=== PATIENT | female | born 1975 | race Caucasian/White ===

== ENCOUNTER 2020-12-17 22:23 | Emergency (ER) | payer OTHER ==
[~2020-12-17] VITALS: Ht 170.2 cm; Wt 52.2 kg
[~2020-12-17 22:23] MED LIST: NOHOMEMEDICATIONS
[2020-12-17] MEDS ORDERED: ZYRTEC10 M5 PO (22:47)
[2020-12-17 23:25] LABS: ABSOLUTE BASOPHILS 0.1 thou/uL (0.0-0.2); ABSOLUTE EOSINOPHILS 0.3 thou/uL (0.0-0.7); ABSOLUTE LYMPHOCYTES 2.9 thou/uL (0.8-5.3); ABSOLUTE MONOCYTES 0.7 thou/uL (0.0-1.2); ABSOLUTE NEUTROPHILS 4.8 thou/uL (1.6-8.1); BASOPHILS 1.4 %; EOSINOPHILS 3.5 %; HEMATOCRIT 37.8 % (37.0-47.0); HEMOGLOBIN 13.4 gm/dL (12.0-15.0); LYMPHOCYTES 32.6 %; MCH 37.4 pg (26.0-34.0); MCHC 35.3 g/dL (28.0-37.0); MCV 105.9 fL (80.0-100.0); MONOCYTES 7.7 %; MPV 7.7 fl. (7.2-11.1); NUCLEATED RBCS 0 /100WBC; PLATELET COUNT* 435 thou/uL (150-400); POLYS 54.8 %; RBC 3.57 mil/uL (4.20-5.00); RDW-CV 15.4 % (10.5-14.5); WBC 8.8 thou/uL (4.0-11.0)
[2020-12-17 23:44] LABS: CALCIUM 8.8 mg/dL (8.5-10.1); CREATININE 0.7 mg/dL (0.6-1.3); POTASSIUM 3.5 mmol/L (3.5-5.1)
[2020-12-17 23:48] LABS: ALBUMIN 3.2 g/dL (3.4-5.0); TOTAL BILIRUBIN 0.1 mg/dL (<0.1-1.0); TOTAL PROTEIN 7.5 g/dL (6.4-8.2)
[2020-12-18] MEDS ORDERED: PROCTOCREAM-HC30 GM RECTAL (01:26)
[2020-12-18] MEDS ORDERED: CIPROFLOXACIN500 M1 PO (01:26)
[2020-12-18] MEDS ORDERED: BACLOFEN 10MG T10 MG PO (01:26)
[2020-12-18] MEDS ORDERED: FLEXERIL PO (01:26)
[2020-12-18 01:49] VITALS: BP 129/90
== END 2020-12-18 01:50 | disposition home or self-care (01) ==
LOC: M.ERS 22:23
PROVIDERS: Nurse Practitioner Psychiatric/Mental Health
DX: K64.8 Other hemorrhoids (principal); M53.3 Sacrococcygeal disorders, not elsewhere classified; F17.210 Nicotine dependence, cigarettes, uncomplicated